=== PATIENT | male | born 1960 | race Caucasian/White ===

== ENCOUNTER 2021-01-25 10:10 | Emergency (ER) | payer BC, SELFPAY ==
--- NOTE | ~2021-01-25 | XR_ITS ---
EXAMINATION: XR chest 1V portable DATE: 01/25/2021 10:33 INDICATION: Midsternal chest pain. TECHNIQUE: A single frontal view of the chest was obtained. COMPARISON: None. FINDINGS: The lung volumes are normal. There is a diffuse interstitial pattern in the lungs. No pleur al effusion or pneumothorax. Cardiomegaly is noted. IMPRESSION: 1. Diffuse interstitial pattern in the lungs, consistent with mild pulmonary edema versus chronic key g disease. 2. Cardiomegaly. Reviewed, dictated and finalized at location A. IMPRESSION: 1. Diffuse interstitial pattern in the lungs, consistent with mild pulmonary ed kayleigh versus chronic lung disease. 2. Cardiomegaly.
[2021-01-25 10:10] VITALS: BP 105/59; PULSE 115; PULSE 87; RESP 19; O2SAT 92
[2021-01-25] MEDS: ASPIRIN 81 MG CHEWABLE TABLET 324 MG PO (10:16)
[2021-01-25] MEDS: ONDANSETRON INJ 4 MG/2 ML VIAL IV PUSH (10:16)
--- NOTE | 2021-01-25 10:16 | ECG_ITS ---
Measurements Intervals [place] Rate: 87 P: 64 MD: 150 QRS: 85 QRSD: 96 T: 68 QT: 402 QTc: 485 Interpretive Statements SINUS RHYTHM LOW QRS VOLTAGE IN PRECORDIAL LEADS BASELINE WANDER- I, II, III, V1, V3-V6 BORDERLINE ECG Electronically Signed On 01-25-2021 10:53:15 CDT by Dwight Conner D.O.
[2021-01-25 10:31] LABS: Basophils Absolute Auto 0.06 K/mm3 (0.00-0.10); Basophils Percent Auto 0.4 % (0.0-1.0); Eosinophils Absolute Auto 0.21 K/mm3 (0.02-0.50); Eosinophils Percent Auto 1.4 % (1.0-6.0); Hematocrit 49.1 % (40.0-54.0); Hemoglobin 16.3 g/dL (14.0-18.0); Immature Granulocyte Percent A 0.7 % (0.0-0.0); Lymphocytes Percent Auto 20.5 % (18.0-42.0); Mean Corpuscular HGB Conc 33.2 g/dL (32.0-36.0); Mean Corpuscular Hemoglobin 29.1 pg (27.0-31.0); Mean Corpuscular Volume 87.7 fL (78.0-102.0); Mean Platelet Volume 9.7 fl (8.7-11.0); Monocytes Absolute Auto 1.31 K/mm3 (0.10-0.90); Monocytes Percent Auto 8.9 % (2.0-11.0); Neutrophils Percent Auto 68.1 % (50.0-70.0); Platelet Count Result 360 K/mm3 (150-420); Red Cell Distribution Width 12.4 % (11.6-14.4); White Blood Count 14.7 K/mm3 (4.8-10.8)
[2021-01-25] MEDS: NITROGLYCERIN SL 0.4 MG TABLET (10:43)
[2021-01-25] MEDS: SODIUM CHLORIDE 0.9% IV 1,000 ML 999 ML ×2 (10:43→10:47)
[2021-01-25 10:45] LABS: Partial Thromboplastin Time 23.9 SEC (23.90-30.70)
[2021-01-25] MEDS: MORPHINE SULFATE (*CRX) 2 MG/ML INJ ×2 (10:46→11:10)
[2021-01-25 10:50] LABS: Alanine Aminotransferase 50 U/L (16-63); Albumin Level 4.1 g/dL (3.4-5.0); Alkaline Phosphatase 73 U/L (46-116); Anion Gap 17 mmol/L (8-16); Aspartate Amino Transferase 29 U/L (15-37); Bilirubin,Total 0.6 mg/dL (0.00-1.00); Blood Urea Nitrogen 14 mg/dL (7-18); Calcium 9.5 mg/dL (8.5-10.1); Carbon Dioxide 20 mmol/L (21-32); Chloride 103 mmol/L (98-108); Estimated Glomerular Filt Rate 42; Glucose 278 mg/dL (70-99); Lipase 79 U/L (73-393); NT Pro B Type Natriuretic Pept 155 pg/mL (0-125); Osmolality Calculated 300 mOsm/kg (285-295); Potassium 4.5 mmol/L (3.5-5.1); Sodium 140 mmol/L (136-145); Total Protein 8.2 g/dL (6.4-8.2); Troponin I 15.1 ng/L (0.00-60.4)
[2021-01-25 11:05] VITALS: BP 101/65; PULSE 86; RESP 21; O2SAT 96
--- NOTE | 2021-01-25 11:10 | PC.NURSE ---
Morphine given IVP for continued chest pain of 10/10
--- NOTE | 2021-01-25 11:15 | PC.NURSE ---
Liter wide open infused, second liter wide open started for transfer to [facility] #20
--- NOTE | 2021-01-25 11:29 | ED.CHESTPAIN ---
HPI - Chest Pain General Chief Complaint: Chest Pain Stated Complaint: CHEST PAIN Source: patient and family Mode of arrival: ambulatory Limitations: no limitations History of Present Illness HPI narrative: Pt presents after doing some training with [employer]. 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 Onset (ago): minute(s) (10) Timing of current episode: constant Onset: during exertion Pain location: substernal Pain radiation: none Severity: moderate Quality: sharp Relieving factors: nitroglycerin Exacerbating factors: stress Context: other Associated symptoms: nausea, vomiting, diaphoresis, dyspnea and sense of impending doom Risk Factors Coronary artery disease risk factors: diabetes, hyperlipidemia and hypertension Related Data Allergies Allergy/AdvReac Type Severity Reaction Status Date / Time No Known Allergies Allergy Unverified 06/18/14 15:26 Review of Systems Constitutional: Constitutional: Reports no additional constitutional complaints Eyes: Eyes: Reports no additional eye complaints ENT: Reports system reviewed and no additional complaints, except as documented Cardiovascular: Cardiovascular: Reports as per HPI, Denies rapid heart rate, Denies radiating jaw, neck or arm pain and Denies slow heart rate Respiratory: Respiratory: Denies chest congestion, Denies cough, Reports dyspnea and Denies wheezing Gastrointestinal: Gastrointestinal: Denies abdominal pain, Denies bloating, Denies constipation, Denies heartburn, Denies diarrhea, Reports nausea and Reports vomiting Genitourinary: Genitourinary: Reports no additional male genitourinary complaints Musculoskeletal: Musculoskeletal: Reports no additional musculoskeletal complaints Neurologic: Reports system reviewed and no additional complaints, except as documented Psychiatric: Psychiatric: Reports no additional psychiatric complaints Endocrine: Endocrine: Reports no additional endocrine complaints Hematologic/Lymphatic: Hematologic/Lymphatic: Reports no additional hematologic/lymphatic complaints Allergic/Immunologic: Allergic/Immunologic: Reports no additional allergic/immunologic complaints PMFSH Past Medical History Medical History CAD (coronary artery disease) Diabetes HTN (hypertension) Hyperlipemia Surgical History Surgical History Stented coronary artery Social History Social History Smoking status: Never smoker Alcohol intake: never Substance use: never Gender identity (if verbalized by the patient): Male Exam Const: General: alert, diaphoretic and ill appearing Orientation/consciousness: patient oriented x3 Other: alert, pale, diaphoretic Eyes: Conjunctivae: conjunctivae normal Pupils: Equal, round and reactive pupils present Chest: Chest palpation & inspection: normal inspection of the chest Resp: Effort & Inspection: normal respiratory effort Auscultation: clear to auscultation bilaterally Cardio: Rate: regular rate Rhythm: regular rhythm GI: GI Palp: Yes Soft to palpation, No Tenderness to palpation present (GI) and No Guarding due to palpation present (GI) Percussion: Yes normal to percussion Back/Spine/Pelvis: Back: no CVA tenderness Skin: General skin exam: normal color Rashes: no rashes Neuro: General: patient oriented x3 and moves all extremities Gait exam (Neuro): Normal gait present Extrem: General: normal to inspection Psych: Appearance: grossly normal Mental Status: mental status grossly normal Affect: normal affect Thought content: Yes Normal thought camilo
--- NOTE | 2021-01-25 11:36 | PC.NURSE ---
Addendum entered by Rachael Casey RN 01/25/21 11:36: REPORT PROVIDED AT 1130 Original Note: TELEPHONE REPORT PROVIDED TO JESSIKA GUTIÉRREZ RN AT [facility]
--- NOTE | 2021-01-25 12:01 | ECG_ITS ---
Measurements Intervals [place] Rate: 74 P: 69 WV: 152 QRS: 76 QRSD: 101 T: 86 QT: 443 QTc: 492 Interpretive Statements SINUS RHYTHM WITH MARKED SINUS ARRHYTHMIA LOW QRS VOLTAGE IN PRECORDIAL LEADS PROLONGED QT INTERVAL BASELINE ARTIFACT- II, III, AVR, AVL, AVF, V1-V6 ABNORMAL ECG Electronically Signed On 01-25-2021 13:02:24 CDT by Dwight Conner D.O.
--- NOTE | 2021-01-25 12:02 | PC.NURSE ---
NITRO GTT STARTED AT 1050 PER STAT HEART PROTOCOL AT 10 MCG. NITRO GTT INCREASED TO 15 MCG PER ERP VERBAL ORDER AT 1100
== END 2021-01-25 11:05 | disposition short-term general hospital (02) ==
PROVIDERS: Emergency Provider Emergency Medicine; PCP Family Medicine
DX: I21.3 ST elevation (STEMI) myocardial infarction of unspecified site (principal); R06.00 Dyspnea, unspecified
CPT/HCPCS: 36415; 71045; 80053; 83690; 83880; 84484; 85025; 85610; 85730; 93005; 96374; 96375; 99285; 99291; A9270; J2270; J2405; J7030

== ENCOUNTER 2021-01-25 12:45 | Inpatient (IN) | payer OTHER, BC, SELFPAY ==
[2021-01-25] VITALS (19 sets, daily range): BP systolic 100–131; BP diastolic 68–91; PULSE 66–85; RESP 16–27; TEMP 36.6–36.7; O2SAT 90–99
--- NOTE | 2021-01-25 | ECHO_ITS ---
Patient Info Name: Isai Garcia Age: 60 years : 1960 Gender: Male Ht: 69 in Wt: 200 lbs BSA: 2.12 m2 HR: 64 bpm BP: 112 / 77 mmHg Heart Rhythm: Sinus Rhythm Exam Date: 01/25/2021 2:59 PM Exam Location: [facility] Patient Status: Inpatient Admit Date: 01/25/2021 Staff Ordering Physician: Estuardo Wolfe MD Correspondence Clerk: Shawn Zapien, ANGELITO, RT Attending Provider: Ward Bowers MD Exam Type: CA echo dop color flow w con Study Info Indications I21.3 - ST elevation (STEMI) myocardial infarction of unspecified site Complete two-dimensional, color flow and Doppler transthoracic echocardiogram is performed with contrast to opacify the left ventricle and to improve the deliniation of the left ventricle endocardial borders. Strain analysis performed. Summary 1. Complete two-dimensional, color flow and Doppler transthoracic echocardiogram is performed with contrast to opacify the left ventricle and to improve the deliniation of the left ventricle endocardial borders. 2. Strain analysis performed. 3. Left ventricular chamber dimension is mildly enlarged. 4. Left ventricular systolic function is moderately reduced, estimated at 40-45%. 5. There is mildly increased left ventricular wall thickness. 6. The left ventricular diastolic function is grade I diastolic dysfunction. 7. There is no thrombus visualized in the left ventricle. 8. Global longitudinal strain is abnormal at -11 %. 9. The apical septum, apical lateral wall, and apical cap are akinetic. 10. The anteroseptal wall, apical inferior wall, mid anterior wall, and mid anterolateral wall are hypokinetic. 11. Left atrial chamber dimension is mildly enlarged. 12. There is mild mitral valve regurgitation. 13. There is mild tricuspid valve regurgitation. 14. There is mild pulmonic regurgitation. Left Ventricle Left ventricular chamber dimension is mildly enlarged. Left ventricular systolic function is moderately reduced, estimated at 40-45%. There is mildly increased left ventricular wall thickness. The left ventricular diastolic function is grade I diastolic dysfunction. There is no thrombus visualized in the left ventricle. Global longitudinal strain is abnormal at -11 %. The apical septum, apical lateral wall, and apical cap are akinetic. The anteroseptal wall, apical inferior wall, mid anterior wall, and mid anterolateral wall are hypokinetic. All other fair appear normal. Right Ventricle Right ventricular chamber dimension is normal. Right ventricular systolic function is normal. Left Atria Left atrial chamber dimension is mildly enlarged. Right Atria Right atrial chamber dimension is normal. Atrial Septum Intact interatrial septum visualized by color flow imaging. Aortic Valve The aortic valve is trileaflet. There is mild aortic valve sclerosis. There is no aortic valve stenosis. There is trace aortic valve regurgitation. Pulmonic Valve The pulmonic valve is normal. There is no pulmonic valve stenosis. There is mild pulmonic regurgitation. Mitral Valve The mitral valve has normal leaflets. There is no mitral valve stenosis. There is mild mitral valve regurgitation. Tricuspid Valve The tricuspid valve leaflets are normal. There is no significant tricuspid valve stenosis. There is mild tricuspid valve regurgitation. No pulmonary hypertension, estimated pulmonary arterial systolic pressure is 29 mmHg. Pericardium/Pleural The pericardium appears normal. There
--- NOTE | ~2021-01-25 | US_ITS ---
EXAMINATION: US renal BI DATE: 01/25/2021 14:52 INDICATION: Acute kidney injury. TECHNIQUE: Multiple ultrasound grayscale images of the kidneys were obtained. COMPARISON: None. FINDINGS: The right kidney measures 10.1 x 5.6 x 4.8 cm. The left kidney measures 10.1 x 5.3 x 4.6 cm. The kidn eys demonstrate normal parenchymal echogenicity. There is no hydronephrosis. The bladder is normal. T here is diffuse hepatic steatosis. IMPRESSION: 1. Normal kidneys. No hydronephrosis. 2. Diffuse hepatic steatosis. Reviewed, dictated and finalized at location A.
--- NOTE | 2021-01-25 12:45 | ECG_ITS ---
Measurements Intervals [place] Rate: 74 P: 32 RI: 153 QRS: 64 QRSD: 80 T: 91 QT: 389 QTc: 432 Interpretive Statements SINUS RHYTHM DELAYED PRECORDIAL R/S TRANSITION LOW QRS VOLTAGE IN LIMB LEADS SUBTLE ST ELEVATION IN LATERAL LEADS- PROBABLY RECENT INFARCT BASELINE ARTIFACT- I, II, III, AVR, AVL, AVF, V5 ABNORMAL ECG Electronically Signed On 01-25-2021 15:03:14 CDT by Dwight Conner D.O.
--- NOTE | 2021-01-25 12:52 | WPDCARDPROC ---
Cardiac Cath Procedure Note Date of procedure:: 01/25/21 Performing physician:: Ward Bowers MD Indication:: acute ST-elevation [place] Brief clinical history:: this is a 60-year-old man brought here from another hospital where he was brought to the emergency room from work with chest pain. He was found to have initially an unremarkable ECG but a 2nd 1 was done because of ongoing symptoms that demonstrated lateral ST segment elevation. STEMI was declared and he was transported by ambulance here to [place] for catheterization and revascularization. He has a history of coronary artery disease with revascularization done elsewhere a number of years ago we have none of those records at the time of this dictation. 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 He was disrupted placed on the cardiac catheterization table where the right left femoral triangles were prepped and draped in the usual fashion. Anesthesia was provided with 1% lidocaine infiltrated locally. Using the modified Seldinger technique the femoral artery was punctured and a 6 [place] vascular sheath was placed. After this I gauge injected the left coronary artery using a standard 5 [place] FL4 catheterization diagnostic catheter. The right coronary artery was engaged and injected using a standard 5 [place] JR4 catheter. After this cineangiograms were reviewed and PCI of the proximal LAD was recommended and carried out as detailed below. Prior to PCI the patient received 180 mg of oral Brilinta and he was systemically anticoagulated with bolus and infusion of Angiomax. He had received aspirin 325 mg in the emergency department and received no additional aspirin in the slab depiler operator. Following PCI as detailed below the catheters were removed the sheath was sutured into position and the patient was taken to the ICU for post mi/PCI recovery. Per patient's condition on leaving the slab depiler operator was stable there were no procedural complications that were apparent and there was no evidence of a groin hematoma. Findings:: Hemodynamics: Central aortic pressure is 122/72 the left ventricle was not entered during this procedure the left main coronary artery is medium in caliber and nicely patent the LAD is a medium caliber vessel and has previous stent material in the proximal LAD and a bifurcation stent that was obviously placed in a diagonal branch in the stented segment as well. The proximal LAD is patent there is a 99% stenosis in the midportion of the previously deployed stent. There is 100% stenosis with no antegrade filling in the diagonal. The LAD stenosis appears to be acute the diagonal occlusion appears to be chronic angiographically. That LAD distal to this has no high-grade lesions is mildly disease. The very terminal apical portion of the LAD appears to be 100% occluded due to thrombus that has embolized distal into that portion of the vessel. The circumflex is a medium caliber artery giving rise to marginal branches. The circumflex has mild luminal irregularities there is a 70-80% stenosis and a terminal posterior circumflex branch. The right coronary artery is moderate caliber and dominant to the posterior circulation the right coronary artery has mild luminal irregularities with atherosclerotic plaquing but no significant lesions are seen. Intervention: The left coronary artery was engaged using a 6 [place] CLS 3.5 guiding catheter. The 0.014 BMW coronary guidewire to engage the artery and traverse the stenosis and wire was advanced into the distal LAD. I then used a 3 x 15 mm emerg
--- NOTE | 2021-01-25 13:02 | P.HP_ITS ---
H&P: HPI History of Present Illness Date/Time: 01/25/21 13:02 Chief Complaint: chest pain Narrative: this is a 60-year-old man transferred here emergently from [place] emergency room with acute ST-elevation MN. I have no information or knowledge of this patient prior to him arriving here at [facility]. Apparently he is known to have coronary disease and has undergone percutaneous revascularization elsewhere. Patient states this was at least several years ago. He was working in the extremely hot weather this morning and developed chest pain and diaphoresis. Upon arrival in the emergency room his initial ECG was not diagnostic of a MN but subsequent EKG did show lateral ST segment elevation. In this condition he is being brought to the cardiac catheterization lab. 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 Review of Systems Review of Systems: ROS unobtainable: Yes unobtainable due to medical condition PMFSH Past Medical History Medical History CAD (coronary artery disease) Diabetes HTN (hypertension) Hyperlipemia Surgical History Surgical History Stented coronary artery Social History Social History Smoking status: Never smoker Alcohol intake: never Substance use: never Gender identity (if verbalized by the patient): Male Meds Home Medications and Allergies Allergies Allergy/AdvReac Type Severity Reaction Status Date / Time No Known Allergies Allergy Unverified 06/18/14 15:26 Exam Const: General: in distress and uncomfortable Other: 60-year-old man diaphoretic reporting severe chest pain HENMT: Mouth: Yes moist mucous membranes Eyes: Sclera: sclerae normal Pupils: Equal, round and reactive pupils present Neck: Neck: supple and no JVD Other: carotid pulses are intact no bruits are audible Resp: Effort & Inspection: normal respiratory effort Auscultation: clear to auscultation bilaterally Cardio: Rate: regular rate Rhythm: regular rhythm Other: no obvious murmur gallop or rub GI: GI Palp: Yes Soft to palpation Auscultation: normal bowel sounds Skin: General skin exam: normal color Neuro: Cognition (Neuro): normal cognition Extrem: General: normal to inspection Assessment and Plan Additional Plan this 60-year-old man with: Acute ST segment elevation [place] he has a history of coronary artery disease with previous PCI no information about this is available to me at the time of this procedure. He is now being brought for emergency angiography in hopes of providing emergency revascularization Ward Bowers MD [facility]
--- NOTE | 2021-01-25 13:32 | ADMGEN ---
This patient, Isai Garcia, was admitted to Intensive Care Unit-3. Patient/family oriented to hospital policies and general routines including ID bracelet, bed and alarms, visiting hours, pain management, procedures, bathroom and other care routines, personal items, smoking policy, room service/diet, and visiting hours. Information on how to activate the Rapid Response Team has been discussed. Patient/Family are encouraged to report perceived risks to care and to ask questions if they do not understand what they are told or what they should do.
--- NOTE | 2021-01-25 13:32 | WPDCNINT ---
Assessment and Plan Assessment and plan (1) ST elevation (STEMI) myocardial infarction: Qualifiers: Involved coronary artery: unspecified coronary artery Qualified Code(s): I21.3 - ST elevation (STEMI) myocardial infarction of unspecified site Code(s): I21.3 - ST elevation (STEMI) myocardial infarction of unspecified site Status: Acute Assessment and Plan: Status post PCI DAPT, statin beta-miguelito ARB Check echo ICU telemetry monitoring Patient was having some residual chest pain. I gave him 1 nitroglycerin and patient is now chest pain-free. Will Monitor closely (2) RAFAEL (acute kidney injury): Code(s): N17.9 - Acute kidney failure, unspecified Status: Acute Assessment and Plan: Patient creatinine is 1.67 and increase serum osmolality This could be due to dehydration as patient has been working out in sun He told me he had some kidney issue during his last catheterization so may have chronic kidney disease with baseline creatinine unknown at this point Patient has also received contrast today with cardiac catheterization Check CK level, urine sodium, creatinine and osmolality Check renal ultrasound IV fluids. Will give 1 L bolus and continue infusion Monitor creatinine, electrolytes and urine output (3) Hyperlipemia: Code(s): E78.5 - Hyperlipidemia, unspecified Status: Acute Assessment and Plan: Crestor has been started (4) HTN (hypertension): Code(s): I10 - Essential (primary) hypertension Status: Acute Assessment and Plan: Patient has been started on metoprolol and Cozaar Monitor and adjust accordingly (5) Diabetes: Code(s): E11.9 - Type 2 diabetes mellitus without complications Status: Acute Assessment and Plan: Continue Januvia. Hold glimepiride for today due to increased creatinine Add Sliding scale insulin Diabetic diet (6) Diabetic neuropathy: Code(s): E11.40 - Type 2 diabetes mellitus with diabetic neuropathy, unspecified Status: Acute Assessment and Plan: From history patient appears to have diabetic neuropathy (7) Peripheral arterial disease: Code(s): I73.9 - Peripheral vascular disease, unspecified Status: Acute Assessment and Plan: From history exam it appears the patient has peripheral arterial disease. Management will be deferred to Cardiology Additional Plan DVT prophylaxis -SCDs Nutrition -diabetic diet Code Status - Full Code Pump Attendant Consult Note Consult date: 01/25/21 Time Seen: 13:00 HPI: Isai Garcia is a 60 year old male with past medical history of diabetes coronary disease hypertension and hyperlipidemia presented to [place] emergency room with chief complaint of chest pain started while he was working outside in hot weather. 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 Chest pain was associated with shortness of breath, nausea, lightheadedness, sweating. In the ED he was diagnosed with Acute ST-elevation IA and transferred to [facility]. On arrival he was taken to cardiac catheterization lab and underwent PCI of LAD. Patient now admitted to ICU for further evaluation management. He states he is feeling much better mild pain still is present. Rates it at 4 to 5/10 and aching quality. No radiation no aggravating or relieving factors. Denies any shortness of breath dizziness lightheadedness palpitations nausea vomiting at this time.. Review of system was positive for ache in legs on walking and also numbness and tingling in his feet which he attributes to neuropathy.. All other systems were reviewed and were negative Review of Systems Review of Systems: All systems reviewed & are unremarkable except as noted
[2021-01-25] MEDS: NITROGLYCERIN SL 0.4 MG TABLET SUBLINGUAL (13:44)
[2021-01-25] MEDS: METOPROLOL SUCCINATE EXT REL 50 MG TABCR PO (13:45)
[2021-01-25] MEDS: SODIUM CHLORIDE 0.9% IV 1,000 ML 999 ML IV CONT (13:47)
[2021-01-25] MEDS: SODIUM CHLORIDE 0.9% IV 1,000 ML 125 ML IV CONT (14:30)
[2021-01-25] MEDS: PERFLUTREN LIPID MICROSPHERES 1.5 ML VIAL DILUTED TO 10 ML TOTAL VOLUME IV PUSH (15:30)
[2021-01-25 15:35] LABS: Cholesterol 118 mg/dL (0-200); HDL Direct 27 mg/dL; Triglycerides 235 mg/dL (<150)
[2021-01-25 15:46] LABS: LDL Cholesterol Direct 58 mg/dL
[2021-01-25 17:30] LABS: Glucose Point of Care 167 mg/dl (65-105)
[2021-01-25 17:46] LABS: Creatine Kinase 234 U/L (55-170)
[2021-01-25 19:42] LABS: Glucose Point of Care 150 mg/dl (65-105)
[2021-01-25] MEDS: TICAGRELOR 90 MG TABLET PO (20:01)
[2021-01-25] MEDS: SODIUM CHLORIDE 0.45% 1,000 ML 100 ML IV CONT (22:22)
[2021-01-26] VITALS (15 sets, daily range): BP systolic 91–135; BP diastolic 57–91; PULSE 44–73; RESP 12–25; TEMP 36.1–36.8; O2SAT 93–100; BMI 30.8
[2021-01-26 04:16] LABS: Hematocrit 43.8 % (42.0-52.0); Hemoglobin 14.4 g/dL (14.0-18.0); Mean Corpuscular HGB Conc 32.9 g/dl (32-36); Mean Corpuscular Hemoglobin 29.6 pg (26-34); Mean Corpuscular Volume 90.1 fl (80-100); Mean Platelet Volume 9.7 fl (7.4-10.4); Platelet Count Result 222 k/mm3 (150-375); Red Blood Count 4.86 M/mm3 (4.6-6.20); Red Cell Distribution Width 13.1 % (11.5-14.5); White Blood Count 17.9 K/mm3 (4.5-10.0)
[2021-01-26 04:27] LABS: Alanine Aminotransferase 38 U/L (4-50); Albumin Level 3.5 g/dL (3.5-5.1); Alkaline Phosphatase 55 U/L (38-126); Anion Gap 8 mmol/L (8-16); Aspartate Amino Transferase 119 U/L (17-59); Bilirubin,Total 0.7 mg/dL (0.2-1.3); Blood Urea Nitrogen 13 mg/dL (9-20); Calcium 8.6 mg/dL (8.4-10.2); Carbon Dioxide 21 mmol/L (22-30); Chloride 104 mmol/L (98-107); Estimated Glomerular Filt Rate > 60; Glucose 137 mg/dL (65-110); Magnesium 2.2 mg/dL (1.6-2.3); Phosphorus 3.2 mg/dL (2.5-4.5); Potassium 4.1 mmol/L (3.4-5.0); Sodium 133 mmol/L (137-145)
--- NOTE | 2021-01-26 05:11 | ECG_ITS ---
Measurements Intervals [place] Rate: 51 P: 25 CO: 139 QRS: 71 QRSD: 85 T: 113 QT: 558 QTc: 516 Interpretive Statements SINUS BRADYCARDIA LOW QRS VOLTAGE IN LIMB LEADS T WAVE ABNORMALITY IN ANTEROLAT/HIGH LAT LEADS- CONSIDER ISCHEMIA ABNORMAL ECG Electronically Signed On 01-26-2021 9:13:51 CDT by Dwight Conner D.O.
[2021-01-26] MEDS: LEVOTHYROXINE SODIUM 150 MCG TABLET PO (06:05)
[2021-01-26] MEDS: SODIUM CHLORIDE 0.45% 1,000 ML 100 ML IV CONT (06:05)
[2021-01-26] MEDS: ROSUVASTATIN 10 MG TABLET 20 MG PO (07:36)
[2021-01-26] MEDS: TICAGRELOR 90 MG TABLET PO ×2 (07:37→20:37)
[2021-01-26] MEDS: METOPROLOL SUCCINATE EXT REL 50 MG TABCR PO (07:37)
[2021-01-26] MEDS: ASPIRIN 81 MG CHEWABLE TABLET PO (07:37)
[2021-01-26] MEDS: LOSARTAN POTASSIUM 25 MG TABLET PO (07:37)
[2021-01-26 07:40] LABS: Glucose Point of Care 137 mg/dl (65-105)
--- NOTE | 2021-01-26 09:05 | WPDINTPN ---
Progress Note: A&P Assessment and Plan (1) ST elevation (STEMI) myocardial infarction: Qualifiers: Involved coronary artery: unspecified coronary artery Qualified Code(s): I21.3 - ST elevation (STEMI) myocardial infarction of unspecified site Code(s): I21.3 - ST elevation (STEMI) myocardial infarction of unspecified site Status: Inactive Assessment and Plan: Status post PCI DAPT, statin beta-miguelito ARB Pending echo Continue telemetry monitoring Patient now chest pain-free (2) RAFAEL (acute kidney injury): Code(s): N17.9 - Acute kidney failure, unspecified Status: Acute Assessment and Plan: Patient creatinine is 1.67 and increase serum osmolality Likely secondary to dehydration as patient has been working out in sun He told me he had some kidney issue during his last catheterization so may have chronic kidney disease with baseline creatinine unknown at this point Patient has also received contrast today with cardiac catheterization Check CK level was mildly elevated Checked urine sodium, creatinine and osmolality Unremarkable renal ultrasound Patient was treated with IV fluids. Renal function has normalized and will discontinue IV fluids today Monitor creatinine, electrolytes and urine output (3) Hyperlipemia: Code(s): E78.5 - Hyperlipidemia, unspecified Status: Acute Assessment and Plan: Crestor has been started (4) HTN (hypertension): Code(s): I10 - Essential (primary) hypertension Status: Acute Assessment and Plan: Patient has been started on metoprolol and Cozaar His blood pressure soft this morning after receiving medication the morning and heart rate is in 50s. Although he is asymptomatic I will decrease Toprol-XL to 25 Monitor and adjust accordingly (5) Diabetes: Code(s): E11.9 - Type 2 diabetes mellitus without complications Status: Acute Assessment and Plan: Continue Januvia. Resume glimepiride once confirmed by patient as patient is saying that he was recently switched to a different medication. His will send his medication information to him Continue Sliding scale insulin Diabetic diet HB A1c is pending (6) Diabetic neuropathy: Code(s): E11.40 - Type 2 diabetes mellitus with diabetic neuropathy, unspecified Status: Acute Assessment and Plan: From history patient appears to have diabetic neuropathy (7) Peripheral arterial disease: Code(s): I73.9 - Peripheral vascular disease, unspecified Status: Acute Assessment and Plan: From history exam it appears the patient has peripheral arterial disease. Management will be deferred to Cardiology Additional Plan DVT prophylaxis -SCDs while in the bed Nutrition -diabetic diet Code Status - Full Code Transfer out of ICU today Subjective Date/time seen: 01/26/21 09:05 Patient states he feels better and denies any new complaints. Slept well. Denied any chest pain or shortness of breath. All other systems were reviewed and were negative Tele shows sinus bradycardia with heart rate in 50s Review of Systems Review of Systems: All systems reviewed & are unremarkable except as noted in HPI and below (HPI) Exam Narrative: General: Pt is alert awake and in NAD Lungs/Chest: Trachea central Clear BS B/L, No crackles or wheezing. Cardiac: RRR. Normal S1 S2. No murmurs Circulation: Bilateral dorsalis pedis are not palpable, bilateral posterior tibial pulses are palpable, good cap refill in both feet with similar temperature Abdomen: Normal bowel sounds.. Soft. NT. ND. Extremities: No clubbing, cyanosis or edema. Warm right groin has a sheath with no hematoma : Aly in place Neurologic: Follows commands. Moves all 4 extremities PERRL alert oriented x3 Skin: No Rash Objective Data Vital Signs Vital Signs: Vital Signs - 24 hr 01/25/21 13:15 01/25/21 13:30 01/25/21 13:45 Temperature Pulse Rate 83 84 73 R
--- NOTE | 2021-01-26 09:59 | PM.PNCARD ---
Progress Note: A&P Assessment and Plan (1) STEMI (ST elevation myocardial infarction): Code(s): I21.3 - ST elevation (STEMI) myocardial infarction of unspecified site Status: Acute Assessment and Plan: Status post anterior STEMI. Continue dual anti-platelet therapy, beta-miguelito, statin, ARB. Observe for another 24 hours. (2) Hyperlipemia: Code(s): E78.5 - Hyperlipidemia, unspecified Status: Acute Assessment and Plan: On moderate dose statin (3) HTN (hypertension): Code(s): I10 - Essential (primary) hypertension Status: Acute Assessment and Plan: Controlled (4) Diabetes: Code(s): E11.9 - Type 2 diabetes mellitus without complications Status: Acute (5) Cardiomyopathy: Code(s): I42.9 - Cardiomyopathy, unspecified Status: Acute Assessment and Plan: Ischemic. EF 40-45%. Continue metoprolol and losartan Subjective Date/time seen: 01/26/21 09:59 Interval history: 60-year-old male with known CAD. Presented with an ST-elevation myocardial infarction Date of service 01/26/2021: Feels ?real good?. No chest pain, shortness of breath. No groin pain Review of Systems Review of Systems: All systems reviewed & are unremarkable except as noted in HPI and below Constitutional: Constitutional: Denies weakness Eyes: Eyes: Denies blurry vision ENT: Reports Normal hearing present Cardiovascular: Cardiovascular: Denies chest pain Respiratory: Respiratory: Denies dyspnea Gastrointestinal: Gastrointestinal: Denies abdominal pain Genitourinary: Genitourinary: Denies dysuria Musculoskeletal: Musculoskeletal: Denies neck pain Integumentary/Breasts: Skin/Breast: Denies dry skin Neurologic: Denies numbness Psychiatric: Psychiatric: Denies behavioral changes Endocrine: Endocrine: Denies change in body appearance Hematologic/Lymphatic: Hematologic/Lymphatic: Denies easy bleeding Allergic/Immunologic: Allergic/Immunologic: Denies GI upset with certain foods Exam Const: General: in distress and uncomfortable Other: 60-year-old man diaphoretic reporting severe chest pain HENMT: Mouth: Yes moist mucous membranes Eyes: Sclera: sclerae normal Pupils: Equal, round and reactive pupils present Neck: Neck: supple and no JVD Other: carotid pulses are intact no bruits are audible Resp: Effort & Inspection: normal respiratory effort Auscultation: clear to auscultation bilaterally Cardio: Rate: regular rate Rhythm: regular rhythm Other: no obvious murmur gallop or rub GI: Auscultation: normal bowel sounds Skin: General skin exam: normal color Other: Right groin is free of hematoma ecchymosis or bruit Neuro: Cranial nerves: Yes Equal, round and reactive pupils present Cognition (Neuro): normal cognition Extrem: General: normal to inspection Objective Data Vital Signs Vital Signs: Vital Signs - 24 hr 01/25/21 13:15 01/25/21 13:30 01/25/21 13:45 Temperature Pulse Rate 83 84 73 Respiratory Rate 20 24 H Blood Pressure 127/91 H 131/79 Pulse Oximetry 94 92 01/25/21 14:00 01/25/21 14:30 01/25/21 15:30 Temperature Pulse Rate 76 78 70 Respiratory Rate 20 22 H 23 H Blood Pressure 113/74 112/77 111/78 Pulse Oximetry 92 96 97 01/25/21 16:00 01/25/21 16:49 01/25/21 16:50 Temperature 36.7 C Pulse Rate 76 75 83 Respiratory Rate 19 26 H 24 H Blood Pressure 111/78 123/85 129/79 Pulse Oximetry 99 98 96 01/25/21 16:55 01/25/21 17:00 01/25/21 17:05 Temperature Pulse Rate 77 77 74 Respiratory Rate 25 H 25 H 26 H Blood Pressure 116/78 124/72 117/70 Pulse Oximetry 90 96 97 01/25/21 17:10 01/25/21 17:30 01/25/21 18:00 Temperature Pulse Rate 79 78 85 Respiratory Rate 19 21 H 23 H Blood Pressure 126/77 123/80 120/79 Pulse Oximetry 96 94 97 01/25/21 18:30 01/25/21 20:00 01/25/21 22:00 Temperature 36.6 C Pulse Rate 85 75 84 Respiratory Rate 27 H 25 H 19 Blood Pressure 120/79
[2021-01-26 11:37] LABS: Glucose Point of Care 163 mg/dl (65-105)
--- NOTE | 2021-01-26 11:38 | PC.NURSE ---
Cardiop[facility] Rehab Services flyer was given to patient.
[2021-01-26 12:03] LABS: Glucose Point of Care 146 mg/dl (65-105)
--- NOTE | 2021-01-26 16:36 | PC.NURSE ---
This patient, Isai Garcia, was received from ICU 3 on 01/26/21 at 1636. Patient/family oriented to unit policies and routines.
[2021-01-26 16:49] LABS: Glucose Point of Care 101 mg/dl (65-105)
[2021-01-26] MEDS: metFORMIN HCL 500 MG TABLET 1000 MG PO (16:52)
[2021-01-26] MEDS: GLIMEPIRIDE 2 MG TABLET 4 MG PO (16:52)
[2021-01-26 17:31] LABS: Creatinine Urine 70.3 mg/dL
[2021-01-26 17:39] LABS: Sodium Urine Random 148 meq/L
[2021-01-26 20:42] LABS: Glucose Point of Care 133 mg/dl (65-105)
[2021-01-26 21:28] LABS: Hemoglobin A1C 8.1 % (<5.7)
[2021-01-27] VITALS: PULSE 60
[2021-01-27 02:00] VITALS: PULSE 54
[2021-01-27 04:00] VITALS: BP 104/58; PULSE 54; PULSE 57; RESP 16; RESP 20; TEMP 36.8; O2SAT 94
[2021-01-27 05:17] LABS: Hematocrit 38.5 % (42.0-52.0); Hemoglobin 12.9 g/dL (14.0-18.0); Mean Corpuscular HGB Conc 33.5 g/dl (32-36); Mean Corpuscular Hemoglobin 29.5 pg (26-34); Mean Corpuscular Volume 88.1 fl (80-100); Mean Platelet Volume 10.1 fl (7.4-10.4); Platelet Count Result 216 k/mm3 (150-375); Red Blood Count 4.37 M/mm3 (4.6-6.20); White Blood Count 13.9 K/mm3 (4.5-10.0)
[2021-01-27 05:27] VITALS: PULSE 78
[2021-01-27 05:34] LABS: Alanine Aminotransferase 30 U/L (4-50); Albumin Level 3.5 g/dL (3.5-5.1); Alkaline Phosphatase 41 U/L (38-126); Anion Gap 4 mmol/L (8-16); Aspartate Amino Transferase 58 U/L (17-59); Bilirubin,Total 1.1 mg/dL (0.2-1.3); Blood Urea Nitrogen 14 mg/dL (9-20); Calcium 8.5 mg/dL (8.4-10.2); Carbon Dioxide 23 mmol/L (22-30); Chloride 108 mmol/L (98-107); Estimated CRCL calculation 74 ml/min; Estimated Glomerular Filt Rate > 60; Glucose 99 mg/dL (65-110); Magnesium 2.1 mg/dL (1.6-2.3); Potassium 4.1 mmol/L (3.4-5.0); Sodium 135 mmol/L (137-145)
[2021-01-27] MEDS: LEVOTHYROXINE SODIUM 150 MCG TABLET PO (06:08)
[2021-01-27 06:21] LABS: Glucose Point of Care 100 mg/dl (65-105)
[2021-01-27 08:00] VITALS: BP 114/55; PULSE 58; PULSE 64; RESP 18; TEMP 36.6; O2SAT 94
--- NOTE | 2021-01-27 08:31 | PM.DS ---
DS: Admitting Diagnosis Admitting Diagnosis chest pain DS: Discharge Diagnosis Discharge Diagnosis (1) STEMI (ST elevation myocardial infarction): Code(s): I21.3 - ST elevation (STEMI) myocardial infarction of unspecified site Status: Acute Assessment and Plan: Status post anterior STEMI. Continue dual anti-platelet therapy, beta-miguelito, statin, ARB. Denies any chest pain. Feeling well today and stable for discharge home. 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 (2) Hyperlipemia: Code(s): E78.5 - Hyperlipidemia, unspecified Status: Acute Assessment and Plan: On moderate dose statin (3) HTN (hypertension): Code(s): I10 - Essential (primary) hypertension Status: Acute Assessment and Plan: Controlled (4) Diabetes: Code(s): E11.9 - Type 2 diabetes mellitus without complications Status: Acute (5) Cardiomyopathy: Code(s): I42.9 - Cardiomyopathy, unspecified Status: Acute Assessment and Plan: Ischemic. EF 40-45%. Continue metoprolol and losartan DS: Summary Hospital Course Reason for hospitalization: Chest pain Hospital Course: Presented to [facility] in transfer from [facility] where he initially presented with chest pain. He did have some ST elevations noted on his initial EKG which prompted transfer to [place] for intervention. 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 This was treated with balloon dilation as well as placement of a 3.5 x 18 mm Orsiro stent. He did not experience any periprocedural or post procedural complications and recovered as expected. Today, he is feeling well, denying any chest pain. He is appropriate for discharge home today. Time Spent with Patient Time attestation: Total time spent providing and/or coordinating discharge services: Time spent: Greater than 30 minutes Exam Narrative: Alert and oriented. Const: General: comfortable and no acute distress Other: HENMT: Mouth: Yes moist mucous membranes Eyes: Sclera: sclerae normal Pupils: Equal, round and reactive pupils present Neck: Neck: supple and no JVD Resp: Effort & Inspection: normal respiratory effort Auscultation: clear to auscultation bilaterally Cardio: Rate: regular rate Rhythm: regular rhythm Heart sounds: no murmurs GI: GI Palp: Yes Soft to palpation Auscultation: normal bowel sounds Skin: General skin exam: normal color Other: Right groin is free of hematoma ecchymosis or bruit Neuro: Cranial nerves: Yes Equal, round and reactive pupils present and Yes Normal hearing present Cognition (Neuro): normal cognition Extrem: General: normal to inspection Psych: Mental Status: mental status grossly normal Affect: normal affect DS: Data Data Completed and Pending Labs on day of discharge: Labs from last 24 hours 01/27/21 01/27/21 01/27/21 06:10 04:54 04:54 WBC 13.9 H RBC 4.37 L Hgb 12.9 L Hct 38.5 L MCV 88.1 MCH 29.5 MCHC 33.5 RDW 13.0 Plt Count 216 MPV 10.1 Sodium 135 L Potassium 4.1 Chloride 108 H Carbon Dioxide 23 Anion Gap 4 L BUN 14 Creatinine 0.90 Estim Creat Clear Calc 74 Estimated GFR > 60 Glucose 99 POC Capillary Glucose 100 Hemoglobin A1c Calcium 8.5 Phosphorus 3.0 Magnesium 2.1 Total Bilirubin 1.1 AST 58 ALT 30 Alkaline Phosphatase 41 Total Protein 6.0 L Albumin 3.5 Ur Random Sodium Urine Creatinine 01/26/21 01/26/21 01/26/21 20:36 16:46 12:01 WBC RBC Hgb Hct MCV MCH MCHC RDW Plt Count MPV Sodium Potassium Chloride Carbon Dioxide Anion Gap BUN Creatinine Estim Creat Clear Calc Estimated GFR Glucose POC Capillary Glucose 133 H 101 146 H Hemoglobin A1c Calcium Phosphorus Magnesium Total Bilirub
[2021-01-27] MEDS: metFORMIN HCL 500 MG TABLET 1000 MG PO (08:35)
[2021-01-27] MEDS: LOSARTAN POTASSIUM 25 MG TABLET PO (08:35)
[2021-01-27] MEDS: TICAGRELOR 90 MG TABLET PO (08:36)
[2021-01-27] MEDS: METOPROLOL SUCCINATE EXT REL 25 MG TABCR PO (08:36)
[2021-01-27] MEDS: ROSUVASTATIN 10 MG TABLET 20 MG PO (08:36)
[2021-01-27] MEDS: GLIMEPIRIDE 2 MG TABLET 4 MG PO (08:36)
[2021-01-27] MEDS: ASPIRIN 81 MG CHEWABLE TABLET PO (08:41)
[2021-01-27 10:00] VITALS: PULSE 57
[2021-01-27 12:42] LABS: Glucose Point of Care 115 mg/dl (65-105)
[2021-01-30 00:37] LABS: Osmolality, Urine 672 mOsm/kg (50-1200)
== END 2021-01-27 11:03 | disposition home or self-care (01) | DRG 247 ==
LOC: ANHICU 13:40 → ANHIMU 01-27 08:54 → ANHICU 01-30 15:26 → ANHIMU 01-30 15:26
PROVIDERS: Internal Medicine; Admitting Provider Specialist; Visit Provider Nurse Practitioner
PROC: 4A023N7 Measurement of Cardiac Sampling and Pressure, Left Heart, Percutaneous Approach (ICD-10-PCS; CPT 93452; principal; 2021-01-25 11:55)
PROC: 027034Z Dilation of Coronary Artery, One Artery with Drug-eluting Intraluminal Device, Percutaneous Approach (ICD-10-PCS; 2021-01-25 11:55)
DX: I21.3 ST elevation (STEMI) myocardial infarction of unspecified site (principal); T82.855A Stenosis of coronary artery stent, initial encounter; N17.9 Acute kidney failure, unspecified; I42.9 Cardiomyopathy, unspecified; I25.10 Atherosclerotic heart disease of native coronary artery without angina pectoris; I10 Essential (primary) hypertension; E78.5 Hyperlipidemia, unspecified; E11.40 Type 2 diabetes mellitus with diabetic neuropathy, unspecified; E11.51 Type 2 diabetes mellitus with diabetic peripheral angiopathy without gangrene; Z79.899 Other long term (current) drug therapy; Z87.891 Personal history of nicotine dependence
CPT/HCPCS: 36415; 76775; 80053; 80061; 82550; 82570; 82948; 83036; 83735; 83935; 84100; 84300; 84484; 85027; 93005; 93306; 93458; A9270; C1725; C1769; C1874; C1887; C1894; C8929; C9606; J0583; J1200; J1644; J7030; J7040; Q9957